=== PATIENT | female | born 1975 | race Caucasian/White ===

== ENCOUNTER 2017-03-25 11:48 | Observation (INO) | payer BC ==
[~2017-03-25] VITALS: Ht 167.6 cm; Wt 60.3 kg
[2017-03-25 13:28] LABS: HEMOGLOBIN 13.3 gm/dl (12.3-15.3); RED BLOOD COUNT 4.58 M/UL (4.00-5.10); WHITE BLOOD COUNT 11.3 K/UL (4.5-11.0)
[2017-03-25 13:50] LABS: BUN/CREATININE RATIO 10 (0-10)
[2017-03-25] MEDS ORDERED: TROKENDI XR100 MG PO (17:10)
[2017-03-25] MEDS ORDERED: IMITREX25 MG PO (17:10)
[2017-03-25] MEDS ORDERED: NORVASC 5 MG TAB5 MG PO (17:11)
[2017-03-25] MEDS ORDERED: XYZAL5 MG PO (17:11)
[2017-03-25] MEDS ORDERED: PROZAC40 MG PO (17:12)
[2017-03-25] MEDS ORDERED: HYGROTON TAB 2525 MG PO (17:13)
[2017-03-25] MEDS ORDERED: SYNTHROID50 MCG PO (17:13)
[2017-03-25] MEDS ORDERED: ASPIRIN EC325 MG PO (19:13)
[2017-03-25] MEDS ORDERED: POTASSIUM CHLO20 ME1 PO (19:14)
[2017-03-25] MEDS ORDERED: LISINOPRIL40 MG PO (19:15)
[2017-09-09] MEDS ORDERED: FLUOXETINE HCL40 MG PO (07:42)
[2017-09-09] MEDS ORDERED: POTASSIUM CHLO20 ME2 PO (07:42)
[2017-09-09] MEDS ORDERED: LEVOTHYROXINE50 MCG PO (07:43)
[2017-09-09] MEDS ORDERED: BUSPIRONE HCL5 MG PO (07:43)
[2017-09-09] MEDS ORDERED: TROKENDI XR100 MG PO (07:43)
[2017-09-09] MEDS ORDERED: CHLORTHALIDONE25 MG PO (07:44)
[2017-09-09] MEDS ORDERED: ZOFRAN4 MG PO (10:19)
[2017-09-09] MEDS ORDERED: NAPROSYN EC 50500 MG PO (10:19)
[2017-09-09] MEDS ORDERED: NORCO 7.5-3251 EACH PO (10:19)
[2017-09-09] MEDS ORDERED: COLACE 100MG C100 MG PO (10:20)
== END 2017-03-25 20:05 | disposition home or self-care (01) ==
LOC: M/S 11:48
PROVIDERS: ADMIT Family Medicine
DX: R07.89 Other chest pain (principal); E87.6 Hypokalemia; E78.5 Hyperlipidemia, unspecified; I10 Essential (primary) hypertension; G43.909 Migraine, unspecified, not intractable, without status migrainosus; F32.9 Major depressive disorder, single episode, unspecified; Z82.49 Family history of ischemic heart disease and other diseases of the circulatory system; Z88.5 Allergy status to narcotic agent; Z79.899 Other long term (current) drug therapy; Z90.49 Acquired absence of other specified parts of digestive tract; Z90.710 Acquired absence of both cervix and uterus
CPT/HCPCS: 36415; 78452; 80053; 83735; 84484; 85027; 93005; 93017; A9502; G0378; G0379

== ENCOUNTER → 2017-04-29 | Outpatient (CLI) | payer BC ==
[~2017-04-29] MED LIST: ASPIRIN EC325 MG PO; BUSPIRONE HCL5 MG PO; CHLORTHALIDONE25 MG PO; COLACE 100MG C100 MG PO; FLUOXETINE HCL40 MG PO; HYGROTON TAB 2525 MG PO; IMITREX25 MG PO; LEVOTHYROXINE50 MCG PO; LISINOPRIL40 MG PO; NAPROSYN EC 50500 MG PO; NORCO 7.5-3251 EACH PO; NORVASC 5 MG TAB5 MG PO; POTASSIUM CHLO20 ME1 PO; POTASSIUM CHLO20 ME2 PO; PROZAC40 MG PO; SYNTHROID50 MCG PO; TROKENDI XR100 MG PO; XYZAL5 MG PO; ZOFRAN4 MG PO
== END ==
LOC: ECHO 04-27 13:00
DX: R07.9 Chest pain, unspecified (principal)
CPT/HCPCS: ECHO; 93306

== ENCOUNTER → 2017-05-06 | Outpatient (CLI) | payer BC ==
[~2017-05-06] MED LIST changes: -BUSPIRONE HCL5 MG PO; -CHLORTHALIDONE25 MG PO; -COLACE 100MG C100 MG PO; -FLUOXETINE HCL40 MG PO; -LEVOTHYROXINE50 MCG PO; -NAPROSYN EC 50500 MG PO; -NORCO 7.5-3251 EACH PO; -POTASSIUM CHLO20 ME2 PO; -ZOFRAN4 MG PO
== END ==
LOC: KOH-I 14:29
DX: M25.561 Pain in right knee (principal)
CPT/HCPCS: 73564